=== PATIENT | female | born 2005 | race Hispanic/Latino ===

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

== ENCOUNTER 2023-01-25 16:08 | Emergency (ER) | payer MEDICAID, OTHER, SELFPAY ==
[2023-01-25] MEDS ORDERED: cefTRIAXone (ROCEPHIN) 2 GM VIAL ONE (16:47)
[2023-01-25] MEDS ORDERED: Acetaminophen 500 MG TAB ONE (16:47)
[2023-01-25] MEDS ORDERED: Sodium Chloride 0.9% 100 ML ONE (16:48)
[2023-01-25 16:53] LABS: #Monocytes 0.5 thou/uL (0.11-0.59); #Neutrophils 4.5 thou/uL (1.40-6.50); %Eosinophils 0.2 % (0.0-10.0); %Lymphocytes 4.4 % (28.0-48.0); %Monocytes 9.8 % (0.0-4.0); %Neutrophils 85.2 % (31.0-61.0); Hematocrit 33.7 % (36.0-47.0); Hemoglobin 11.8 g/dL (12.0-16.0); Mean Corpuscular Hemoglobin 28.9 pg (25.0-35.0); Mean Corpuscular Volume 82.6 fl (78.0-98.0); Mean Platelet Volume 10.8 fL (7.4-10.4); Platelet Count 200 10x3/uL (130-400); RBC Distribution Width 13.7 % (11.5-14.5); Red Blood Cell (RBC) Count 4.08 mill/uL (4.00-5.20); White Blood Cell (WBC) Count 5.2 10x3/uL (4.8-10.8)
[2023-01-25 17:15] LABS: Bilirubin Small (Negative); Blood, Urine Negative (Negative); Glucose, Urine (Dipstick) Negative (Negative); Ketone, Urine > or equal to 80 mg/dL (Negative); Leukocyte Trace (Negative); Nitrite Negative (Negative); Protein, Urine (Dipstick) 100 mg/dL (Neg-Trace); Specific Gravity, Urine 1.025 (1.005-1.030); pH, Urine 6.5 (5.0-9.0)
[2023-01-25 17:17] LABS: Clarity Hazy (Clear)
[2023-01-25 17:22] LABS: CAUTI Indications for Culture Dysuria,urgency,freq; RBC/HPF None Seen HPF (0-3); Squamous Epithelial 21-50 HPF (0-3)
[2023-01-25 17:23] LABS: ALT (SGPT) 18 U/L (8-55); AST (SGOT) 21 U/L (5-30); Albumin 4.5 g/dL (3.5-5.0); Alkaline Phosphatase 73 U/L (40-100); Anion Gap 14 mmol/L (10-20); BUN (Urea Nitrogen) 5 mg/dL (8.4-21.0); Bacteria/HPF 2+ HPF (None Seen); Bilirubin, Total 0.2 mg/dL (0.2-1.2); Calc. Creatinine Clearance 0 mL/min (70-130); Calcium 9.6 mg/dL (7.8-10.44); Carbon Dioxide 19 mmol/L (22-29); Chloride 103 mmol/L (98-107); Estimated GFR 130; Globulin 2.9 g/dL (2.4-3.5); Glucose 84 mg/dL (70-105); Potassium 3.1 mmol/L (3.5-5.1); Protein, Total 7.4 g/dL (6.0-8.3); Sodium 133 mmol/L (136-145)
[2023-01-25 17:25] LABS: Urine Culture Reflex No No
== END 2023-01-25 18:07 | disposition home or self-care (01) ==
LOC: ERS 16:08
DX: N10 Acute pyelonephritis (principal)
CPT/HCPCS: 36415; 80053; 81001; 84702; 85025; 87040; 87086; 96361; 96374; J0696; J3490

== ENCOUNTER 2024-03-19 17:37 | Emergency (ER) | payer MEDICAID, OTHER ==
[2024-03-19 18:09] LABS: Pregnancy Test - Urine (BHCG) Negative (Negative); Pregu Control Background? CLEAR/WHITE (CLR/WHITE); Pregu Control Bar Appear? YES (CONTROL BAR)
[2024-03-19] MEDS ORDERED: Ketorolac Tromethamine 30 MG (1 mL) VIAL ONE (18:12)
== END 2024-03-19 18:40 | disposition home or self-care (01) ==
LOC: ERS 17:37
DX: K04.7 Periapical abscess without sinus (principal)
CPT/HCPCS: 81025; 96372; 99283; J1885